=== PATIENT | female | born 1990 | race Caucasian/White ===

== ENCOUNTER 2016-06-26 04:51 | Emergency (ER) | payer OTHER ==
--- NOTE | 2016-06-26 08:29 | DIAGNOSTIC IMAGING REPORT ---
PROCEDURE: CT THORAX ABD PELVIS W/CONT INDICATION: CHEST/ABDO PAIN. ELEVATED LFTS, initial encounter TECHNIQUE: 100 ml of Isovue 300 injected intravenously and axial images were obtained of the entire thorax, abdomen, and pelvis with sagittal and coronal reformations. COMPARISON: Chest x-ray 06/26/[address] abdomen/pelvis fourth 21:11. FINDINGS: THORAX: Normal thoracic aorta without dissection or aneurysm. Normal mediastinum without hematoma. Normal heart size. Lungs are clear. No adenopathy or effusion. Mild degenerative changes of the spine. ABDOMEN: Cholecystectomy. Hepatic steatosis. A 2 cm hypoenhancing left renal upper pole lesion. Pancreas, spleen, adrenal glands, back, right kidney and abdominal aorta are normal. Mild descending colon diverticulosis. PELVIS: Appendix not visualized but no evidence of acute appendicitis. Mild sigmoid diverticulosis. Uterus, adnexa and bladder are unremarkable. No inflammatory changes or free fluid. No suspicious osseous lesions. IMPRESSION: 1. 2 cm hypoenhancing left renal upper pole mass. Recommend follow-up dedicated renal CT scan. 2. Hepatic steatosis 3. Cholecystectomy 4. Mild diverticulosis 5. Results discussed with Dr. Escobar All CT scans at this facility use dose modulation, iterative reconstruction, and/or weight-based dosing when appropriate to reduce radiation dose to as low as reasonably achievable.
--- NOTE | 2016-06-26 08:40 | DIAGNOSTIC IMAGING REPORT ---
PROCEDURE: XR CHEST 2 VIEW INDICATION: Chest pain, initial encounter TECHNIQUE: PA and lateral view. COMPARISON: Chest x-ray 02/17/2012 FINDINGS: Lungs are clear. Cardiovascular structures are normal. Bony thorax is unremarkable. No significant interval change. IMPRESSION: 1. Negative chest.
--- NOTE | 2016-06-26 08:57 | ED NURSING NOTES ---
Clinical Report - Nurses [facility] [address] [place] [address] 06/26/2016 4:52 Patient: ANITHA LINK TRIAGE Triage time 05:00 Jun 26 2016. Acuity: LEVEL 3. Chief Complaint: CHEST PAIN and DISCOMFORT. Alert. DOMO COMA SCORE: Domo Coma Scale: 15- eyes open spontaneously (4); best verbal response- oriented x 4 (5); best motor response- obeys commands (6). --05:12 Gonzalez Gonzales R.N. 05:02 06/26/16. BP: 149/98. HR: 114. RR: 20. O2 saturation: 98% on room air. Temp: 98.6 F. Pain level now: 8/10. Additional comments: Substernal CP. --05:12 Gonzalez Gonzales R.N. Weight: 122.4 kg stated. Height/Length: 61 inches Per Patient. BMI: 51. --05:05 Gonzalez Gonzales R.N. Medications Excedrin PM Oral, as needed. --05:04 Gonzalez Gonzales R.N. Allergies No Known Drug Allergy. --05:04 Gonzalez Gonzales R.N. Medication/allergy information source: the patient. --05:12 Gonzalez Gonzales R.N. History Arrived by private vehicle. Historian: patient. Accompanied by friend. ( Chest Pain associated with a TRAMMELL and back pain). This started yesterday. Onset. (about 17 hours ago). She has had difficulty breathing. Treatment BEAM DYER RECESSED VAT: (Excedrin x 3 ~ 3 hours ago). PAST MEDICAL HX: Immunizations: status is unknown. Last normal menstrual period was 3 weeks ago. SOCIAL HX: Former smoker, end date 2002. Never smoker. History of drug use: marijuana. No infectious disease exposure. ABUSE ASSESSMENT: No report of abuse. FALL RISK ASSESSMENT: Fall risk assessment completed. No fall risk identified. NUTRITIONAL RISK ASSESSMENT: The nutritional risk assessment revealed no deficiencies. FUNCTIONAL ASSESSMENT: Functional assessment: no impairments noted. LEARNING NEEDS ASSESSMENT: The learning needs assessment revealed no barriers. SKIN INTEGRITY ASSESSMENT: Skin integrity risk assessment completed. No skin integrity risk identified. --05:12 Gonzalez Gonzales R.N. PROBLEMS: Pharyngitis. Migraine Headache. Anxiety Reaction. --05:08 Gonzalez Gonzales R.N. ADDITIONAL SURGERIES: Cholecystectomy. . --05:08 Gonzalez Gonzales R.N. Interventions ID band on patient. To treatment room. --05:12 Gonzalez Gonzales R.N. PHYSICAL ASSESSMENT Ambulatory to room. GENERAL / NEURO / PSYCH: Alert. Oriented X 4. Appears in pain. HEENT: Mucous membranes are pink. RESPIRATORY: Respirations not labored. CVS: Cardiac rhythm: sinus tachycardia. Heart sounds within normal limits. Pulses within normal limits. Capillary refill less than 2 seconds. GI / : Abdomen soft and nontender. Diminished bowel sounds. EXTREMITIES: No lower extremity edema. SKIN: Skin is warm and dry. Normal skin turgor. Skin is non-tender. --05:15 Gonzalez Gonzales R.N. NURSING PROGRESS NOTES linux systems engineer, pulse oximeter, end tidal CO2 monitor and NIBP monitor placed on patient; shipyard helper- Lead II and V1; monitor alarms on. Patient gowned. Reassurance given to the patient. Patient identifiers checked. Call light placed in reach. Side rails up x 1. Bed placed in lowest position. Brakes of bed on. Patient placed in chair. Patient ready for evaluation- chart flagged and ED physician notified. --05:15 Gonzalez Gonzales R.N. EKG time: (0521 AM). EKG was ordered, performed by a tech and shown to the ED physician. --05:23 Lily Alvarenga 05:16 06/26/2016 Site #1 started via IV in the right wrist with an 22g angiocath, with aseptic technique and good blood return; one attempt. Blood drawn: rainbow set. Labeled in the presence of the patient and sent to the lab. Saline lock flushed with 10 mL saline. --05:26 Gonzalez Gonzales R.N. 05:31 06/26/2016 Maalox 30mL and Viscous Lidocaine 20mL * PO 50mL --05:31 Gonzalez Gonzales R.N. Patient transported to radiology by stretcher with tech. --05:35 Gonzalez Gonzales R.N. Patient returned from radiology by stretcher with tech. --05:36 Gonzalez Gonzales R.N. 06:10 06/26/16. Patient ID band checked for patient name, birthdate and medical record number: patient confirmed. Instructions provided to collect clean catch urine and patient verbalized understanding. Clean catch urine collected with return of yellow-colored clear urine; odor is normal; sample sent to lab for urinalysis, culture and drug screen. Specimen labeled in the presence of the patient. --06:22 Gonzalez Gonzales R.N. 06:19 06/26/2016 Toradol IVP 30 mg given over 2 minute(s) via site #1. Allergies verified and confirmed 5 rights. IV patency established. IV site checked: no pain, redness, or swelling. IV flushed thoroughly pre- and post-medication administration. IVP given by RN. --06:19 Gonzalez Gonzales R.N. 08:05 06/26/2016 Maalox 30mL and Viscous Lidocaine 20mL PO Response: no adverse reaction pain is improving. Symptoms have improved the patient feels better. --08:05 Derek Sterling R.N. 08:06 06/26/2016 Toradol IVP Response: no adverse reaction pain is improving. Symptoms have improved the patient feels better. --08:06 Derek Sterling R.N. 08:03. Patient walked back to ED from CT. --08:06 Derek Sterling R.N. 08:06 06/26/16. BP: 141/86. HR: 76. RR: 20. O2 saturation: 96% on room air. Pain level now: 07/16. --08:07 Derek Sterling R.N. late entry -08:10. linux systems engineer, pulse oximeter and NIBP monitor placed on patient; shipyard helper- Lead II and aVR; monitor alarms on. Head of bed elevated. Reassessment after medication administered. She is resting quietly. Overall patient status is improved- she states feels better. ( chest pain is improved to 3/10.). CVS: Cardiac rhythm: normal sinus rhythm. Call light placed in reach. Side rails up x 1. Bed placed in lowest position. Brakes of bed on. --08:37 Derek Sterling R.N. DISPOSITION / DISCHARGE 09:23 06/26/16. Departure time: 921. Condition at departure: improved and stable. No learning barriers present. Discharge instructions provided and reviewed with the patient. Reviewed medication(s). Patient verbalized understanding. Written instructions provided in [place]. The patient was discharged by the physician. She was discharged home and accompanied by roof bolter helper. She left the Emergency Department ambulatory and via private vehicle. Merchandise Supervisor driving. --09:25 Derek Sterling R.N. 09:22 06/26/16. BP: 142/95. HR: 80. RR: 20. O2 saturation: 96% on room air. Temp: 97.8 F (oral). Pain level now: 07/16. --09:25 Derek Sterling R.N. Locked/Released at 06/26/2016 10:17 by Derek Sterling R.N.
--- NOTE | 2016-06-26 08:57 | ED ORDER SUMMARY ---
..... Patient: ANITHA LINK OrderSheet [facility] VisitID: [id number] [address] [place] [address] 26y, F Registration Date/Time: 06/26/2016 ORDER SHEET Weight: 122.4 kg (stated) Allergies: No Known Drug Allergy GENERAL ORDERS: Service Line Layer (Continuous) (cp) (04:59 06/26/2016 Chandler Robertson) (5:26 Migeulito R.N.) Chest 2V Urgent (04:59 06/26/2016 Chandler Robetrson) (Ack 5:00 CHagerty ER Air Quality Chemist) (5:38 Yaniv) Urine Urgent (04:59 06/26/2016 Chandler Robertson) (Ack 5:00 CHagerty ER Air Quality Chemist) (6:21 Miguelito R.N.) Urine Drug Screen Urgent (04:06/26/2016 Chandler Robertson) (Ack 5:00 CHagerty ER Air Quality Chemist) (6:21 Miguelito R.N.) EKG - ER Stat (04:59 06/26/2016 Chandler Robertson) (5:21 CHagerty ER Air Quality Chemist) Pulse oximeter (04:59 06/26/2016 Chandler Robertson) (5:25 Miguelito R.N.) CBC w Diff Urgent (05:06/26/2016 Chandler Robertson) (Ack 5:17 CHagerty ER Air Quality Chemist) (5:26 Miguelito R.N.) CMP Urgent (05:06/26/2016 Chandler Robertson) (Ack 5:17 CHagerty ER Air Quality Chemist) (5:26 Miguelito R.N.) Troponin-I Urgent (05:06/26/2016 Chandler Robertson) (Ack 5:17 CHagerty ER Air Quality Chemist) (5:26 Miguelito R.N.) D-Dimer Urgent (05:06/26/2016 Chandler Robertson) (Ack 5:17 CHagerty ER Air Quality Chemist) (5:26 Miguelito R.N.) BNP Urgent (05:06/26/2016 Chandler Robertson) (Ack 5:17 CHagerty ER Air Quality Chemist) (5:26 Miguelito R.N.) Lipase Urgent (06:25 06/26/2016 Chandler Robertson) (6:26 Ramírez ER Air Quality Chemist) CT Thorax/Abd/Pelvis w Cont (No) (GFR > 60) Urgent (07:26 06/26/2016 Chandler Robertson) (Ack 7:32 TBergley) (8:05 Rasheeda R.N.) MEDICATION ORDERS: GI Cocktail WHITE PO 30 mL (NOW) (05:13 06/26/2016 Chandler Robertson) (5:31 Miguelito R.N.) IV FLUIDS: IV Saline Lock (05:16 06/26/2016 Chandler Robertson) (5:26 Miguelito R.N.) Toradol IV 30 mg (NOW) (06:03 06/26/2016 Chandler Robertson) (6:19 Miguelito R.NClaudy) ORDER SHEET NOTES: [Electronically signed by Derek Sterling R.N. (10:17 06/26/2016)] [Electronically signed by Michael Escobar Dr. (11:21 06/30/2016)] [Electronically locked/signed by Derek Sterling R.N. (10:17 06/26/2016)]
--- NOTE | 2016-06-26 08:57 | ED CLINICAL REPORT ---
Clinical Report - Physicians/Mid Levels [facility] [address] [place] [address] 06/26/2016 4:52 Patient: ANITHA LINK Arrived- By private vehicle. Historian- patient. HISTORY OF PRESENT ILLNESS Chief Complaint: CHEST PAIN. Is still present (staying the same). It was abrupt in onset and has been constant but is not gone now. Onset during rest. At its maximum, severity described as moderate. Modifying factors. Not worsened by anything. Not relieved by anything. It is described as located in the central chest area and radiating (back and left shoulder). The patient has had nausea. No vomiting, difficulty breathing or diaphoresis. Similar symptoms previously: None. Recent medical care: Not recently seen/assessed. REVIEW OF SYSTEMS All systems otherwise negative, except as recorded above. PAST HISTORY See nurses notes. Medications: Excedrin PM Oral, as needed. Allergies: No Known Drug Allergy. SOCIAL HISTORY No alcohol use or drug use. ADDITIONAL NOTES The nursing notes have been reviewed. PHYSICAL EXAM Vital Signs: 06/26/2016 05:02 BP: 149/98. HR: 114. RR: 20. O2 saturation: 98%. Temp: 98.6 F. Pain level now: 8/10. Blood pressure normal. Oxygen saturation normal. Appearance: Alert. Oriented X3. No acute distress. No marfanoid habitus. (nontoxic appearance). Eyes: Pupils equal, round and reactive to light. Eyes normal inspection. ENT: Ears normal. Nose normal. Pharynx normal. Neck: Normal inspection. Neck supple. No JVD. CVS: Normal heart rate and rhythm. Heart sounds normal. Pulses normal. No decreased pulses. Respiratory: No respiratory distress. Breath sounds normal. Chest nontender. No rales, rhonchi or wheezes. Abdomen: Soft and nontender. Bowel sounds normal. No mass. (no pulsatile masses). Back: Normal external inspection. Skin: Skin warm and dry. Normal skin color. No rash. Normal skin turgor. Extremities: Extremities exhibit normal ROM. No lower extremity edema. LABS, X-RAYS, AND EKG EKG: Narrow-complex tachycardia (101). Sinus tachycardia. Normal P waves. Normal ANUPAM. Normal QRS complex. Normal axis. Normal ST and T waves, QT and QTc. No ST elevation or depression. The study has been interpreted contemporaneously. The study has been independently viewed by me. The EKG appears to be a good tracing. Chest X-ray: No acute disease. Normal lung markings present. Normal heart size. Mediastinum normal. Great vessels normal. No infiltrate. Views: PA and lateral. Technique: good. The X-rays were independently viewed by me and interpreted contemporaneously by me. Laboratory Tests: Urine: (MAURY: 06/26/2016 06:10) ( [facility] [place] 06:45) Final results Test Result Flag Units (Reference) URINE NEGATIVE CBC w Diff: (MAURY: 06/26/2016 05:26) ( [facility] 06/26/2016 05:32) Final results Test Result Flag Units (Reference) WHITE BLOOD COUNT 7.8 K/uL (4.5-11.5) RED BLOOD COUNT 5.00 M/uL (4.00-5.20) HEMOGLOBIN 14.5 gm/dL (12.0-16.0) HEMATOCRIT 43.2 % (36.0-46.0) MEAN CELL VOLUME 86 fL (80-100) MEAN CORPUSCULAR HGB 29 pg (26-34) MEAN CORPUSCULAR HGB CONC 34 g/dL (31-37) RED CELL DISTRIBUTION WIDTH 13.1 % (11.6-14.8) PLATELET COUNT 255 K/uL (150-400) NEUTROPHIL % 57.2 % (50-75) LYMPH % 31.6 % (25-40) MONO % 9.2 % (3-14) EOSINOPHIL % 1.5 % (0-4) BASOPHIL % 0.5 % (0-2) [id number]: (MAURY: 06/26/2016 05:26) ( [facility] 06/26/2016 05:49) Final results Test Result Flag Units (Reference) D-DIMER QUANTITATIVE < 0.27 L ug/mLFEU (0.27-0.52) The primary value of this quantitative assay relates toits negative predictive value (i.e. exclusion) of pulmonaryembolism/deep vein thrombosis/DIC.Elevated levels of d-dimer may also occur with:, age, cancer, inflammation, liver disease,post-op, infection, hematoma, coronary disease, peripheralarteriopathy, bleeding disorders and thrombolytic treatment.Results should be correlated with other clinical andradiological data.Testing Methodology: Latex Immunoassay Lipase: (MAURY: 06/26/2016 04:30) ( [facility] 06/26/2016 06:48) Final results Test Result Flag Units (Reference) LIPASE 187 U/L (73-393) BNP: (MAURY: 06/26/2016 05:26) ( [facility] 06/26/2016 05:58) Final results Test Result Flag Units (Reference) B-TYPE NATRIURETIC PEPTIDE < 5 L pg/ml (5-100) CMP: (MAURY: 06/26/2016 05:26) ( [facility] [place] 05:55) Final results Test Result Flag Units (Reference) GLUCOSE 111 H mg/dL (70-110) BUN 10 mg/dL (7-18) CREATININE 0.7 mg/dL (0.6-1.3) Estimated GFR >60 mL/min Estimated GFR- >60 mL/min Note: Persistent reduction over 3 months in eGFR<60 mL/min/1.73 m2 defines CKD. Patients with eGFR values>=60 mL/min/1.73 m2 may also have CKD if evidence ofpersistent proteinuria. Additional information may be foundat www.kidney.org. SODIUM 140 mmol/L (136-145) POTASSIUM 3.5 mmol/L (3.5-5.1) CHLORIDE 104 mmol/L (98-107) CARBON DIOXIDE 24 mmol/L (21-32) CALCIUM 9.2 mg/dL (8.5-10.1) TOTAL PROTEIN 8.2 g/dL (6.4-8.2) ALBUMIN 3.9 g/dL (3.3-5.0) BILIRUBIN, TOTAL 0.3 mg/dL (0.0-1.0) ALKALINE PHOSPHATASE 65 U/L (46-116) AST (SGOT) 40 H U/L (15-37) ALT (SGPT) 106 H U/L (12-78) TROPONIN I <0.05 L ng/mL (0.00-1.5) TROPONIN REFERENCE RANGE:<0.1 NEGATIVE0.1-1.5 INDETERMINANT>1.5 POSITIVE Urine Drug Screen: (MAURY: 06/26/2016 06:10) ( MsgRcvd 06/26/2016 07:09) Final results Test Result Flag Units (Reference) AMPHETAMINE/METHAMPHETAMINE NEGATIVE (NEGATIVE) BARBITURATE NEGATIVE (NEGATIVE) BENZODIAZEPINE NEGATIVE (NEGATIVE) CANNABINOID POSITIVE H (NEGATIVE) COCAINE NEGATIVE (NEGATIVE) ECSTASY NEGATIVE (NEGATIVE) METHADONE NEGATIVE (NEGATIVE) OPIATE NEGATIVE (NEGATIVE) The urine drug screen is a qualitative screening test fordrug overdose and abuse. All screen results should beconsidered as presumptive.Drugs screened for are as follows:BenzodiazepinesCocaineAmphetamines/MetamphetaminesTHC (Tetrahydrocannabinol)OpiatesBarbituratesEcstasyMethadonePositive results are unconfirmed. For confirmation, notifythe lab for the specimen to be sent to the reference lab.All confirmations must be performed by a differentmethodology.The ingestion of natural herbal and plant productscontaining Ephedra/Ephedra metabolites can produce in urineone or more substances capable of cross reacting withamphetamine/methamphetamine immunoassays. These testsprovide a preliminary result only. A more specificalternative chemical method must be used to obtain aconfirmed analytical result. . PROGRESS AND PROCEDURES Course of Care: the patient is a pleasant 26-year-old female w Presenting for evaluation of chest pain. patient reports radiation of her pain to the back and shoulder. At this time, acute myocardial infarction, pulmonary embolism, and gastroesophageal reflux are in the differential diagnosis. Patient is agreeable to treatment plan. Laboratory studies, EKG, and urinalysis will be obtained. Patient appears nontoxic. We'll reassess patient once medications Have been provided. patient reports improvement in symptoms with the medications provided. EKG does not show any acute abnormalities for ischemia. Chest x-ray is noted to be clear. Laboratory studies are unremarkable. Because of the pain symptom distribution, a lipase was added onto the patient's workup. Patient is nontoxic and in no acute distress. The rest of the patient's laboratory studies and noted to be unremarkable. Patient reports significant improvement with her symptoms. Workup here in the emergency department D-dimer is also noted to be negative. Do not feel patient has pulmonary embolism or dissection because of the normal d-dimer. Discussed with patient workup, diagnosis, home care, follow-up, and return precautions. All questions answered. The patient expressed understanding of these instructions and was agreeable to them. Do not feel patient is be admitted to the hospital or require further emergency department/workup/evaluation. CLINICAL IMPRESSION 06/26/2016 08:06 BP: 141/86. HR: 76. RR: 20. O2 saturation: 96%. Pain level now: 3/10. Acute generalized abdominal pain. (acute). Hypertensive. Oxygen saturation normal. Atypical chest pain (acute). acute hepatic steatosis acute left renal mass, incidental finding. INSTRUCTIONS (Must get repeat CT scan of the abdomen to check on the size of the kidney mass in 6 - 12 months.). Your Current Medications: STOP TAKING THE FOLLOWING MEDICATIONS: Excedrin PM Oral : prn. Prescription Medications: Motrin 600 mg tablets: take 1 tablet orally every 6 hours as needed for pain, stiffness or swelling. Dispense thirty (30). No refill. Substitution is permissible. Zofran ODT 4 mg: take 1 orally every 8 hours as needed for nausea and vomiting. Dispense ten (10). No refill. Substitution is permissible. Follow-up: Return to the emergency department as needed. Follow up with your doctor in three. Reason for referral: recheck today's concerns. Summary of care provided to patient via paper. Screening today revealed the patient's blood pressure to be in the hypertensive range. The patient should follow up with a primary care provider for blood pressure management. Understanding of the discharge instructions verbalized by patient. (Electronically signed by Michael Escobar Dr. 06/30/2016 11:21)
--- NOTE | 2016-06-26 08:57 | ED NURSING NOTES ---
Clinical Report - Nurses [facility] [address] [place] [address] 06/26/2016 4:52 Patient: ANITHA LINK TRIAGE Triage time 05:00 Jun 26 2016. Acuity: LEVEL 3. Chief Complaint: CHEST PAIN and DISCOMFORT. Alert. DOMO COMA SCORE: Domo Coma Scale: 15- eyes open spontaneously (4); best verbal response- oriented x 4 (5); best motor response- obeys commands (6). --05:12 Gonzalez Gonzales R.N. 05:02 06/26/16. BP: 149/98. HR: 114. RR: 20. O2 saturation: 98% on room air. Temp: 98.6 F. Pain level now: 8/10. Additional comments: Substernal CP. --05:12 Gonzalez Gonzales R.N. Weight: 122.4 kg stated. Height/Length: 61 inches Per Patient. BMI: 51. --05:05 Gonzalez Gonzales R.N. Medications Excedrin PM Oral, as needed. --05:04 Gonzalez Gonzales R.N. Allergies No Known Drug Allergy. --05:04 Gonzalez Gonzales R.N. Medication/allergy information source: the patient. --05:12 Gonzalez Gonzales R.N. History Arrived by private vehicle. Historian: patient. Accompanied by friend. ( Chest Pain associated with a TRAMMELL and back pain). This started yesterday. Onset. (about 17 hours ago). She has had difficulty breathing. Treatment GOLD BLOWER: (Excedrin x 3 ~ 3 hours ago). PAST MEDICAL HX: Immunizations: status is unknown. Last normal menstrual period was 3 weeks ago. SOCIAL HX: Former smoker, end date 2002. Never smoker. History of drug use: marijuana. No infectious disease exposure. ABUSE ASSESSMENT: No report of abuse. FALL RISK ASSESSMENT: Fall risk assessment completed. No fall risk identified. NUTRITIONAL RISK ASSESSMENT: The nutritional risk assessment revealed no deficiencies. FUNCTIONAL ASSESSMENT: Functional assessment: no impairments noted. LEARNING NEEDS ASSESSMENT: The learning needs assessment revealed no barriers. SKIN INTEGRITY ASSESSMENT: Skin integrity risk assessment completed. No skin integrity risk identified. --05:12 Gonzalez Gonzales R.N. PROBLEMS: Pharyngitis. Migraine Headache. Anxiety Reaction. --05:08 Gonzalez Gonzales R.N. ADDITIONAL SURGERIES: Cholecystectomy. . --05:08 Gonzalez Gonzales R.N. Interventions ID band on patient. To treatment room. --05:12 Gonzalez Gonzales R.N. PHYSICAL ASSESSMENT Ambulatory to room. GENERAL / NEURO / PSYCH: Alert. Oriented X 4. Appears in pain. HEENT: Mucous membranes are pink. RESPIRATORY: Respirations not labored. CVS: Cardiac rhythm: sinus tachycardia. Heart sounds within normal limits. Pulses within normal limits. Capillary refill less than 2 seconds. GI / : Abdomen soft and nontender. Diminished bowel sounds. EXTREMITIES: No lower extremity edema. SKIN: Skin is warm and dry. Normal skin turgor. Skin is non-tender. --05:15 Gonzalez Gonzales R.N. NURSING PROGRESS NOTES hall monitor, pulse oximeter, end tidal CO2 monitor and NIBP monitor placed on patient; cardiac exercise physiologist- Lead II and V1; monitor alarms on. Patient gowned. Reassurance given to the patient. Patient identifiers checked. Call light placed in reach. Side rails up x 1. Bed placed in lowest position. Brakes of bed on. Patient placed in chair. Patient ready for evaluation- chart flagged and ED physician notified. --05:15 Gonzalez Gonzales R.N. EKG time: (0521 AM). EKG was ordered, performed by a tech and shown to the ED physician. --05:23 Lily Alvarenga 05:16 06/26/2016 Site #1 started via IV in the right wrist with an 22g angiocath, with aseptic technique and good blood return; one attempt. Blood drawn: rainbow set. Labeled in the presence of the patient and sent to the lab. Saline lock flushed with 10 mL saline. --05:26 Gonzalez Gonzales R.N. 05:31 06/26/2016 Maalox 30mL and Viscous Lidocaine 20mL * PO 50mL --05:31 Gonzalez Gonzales R.N. Patient transported to radiology by stretcher with tech. --05:35 Gonzalez Gonzales R.N. Patient returned from radiology by stretcher with tech. --05:36 Gonzalez Gonzales R.N. 06:10 06/26/16. Patient ID band checked for patient name, birthdate and medical record number: patient confirmed. Instructions provided to collect clean catch urine and patient verbalized understanding. Clean catch urine collected with return of yellow-colored clear urine; odor is normal; sample sent to lab for urinalysis, culture and drug screen. Specimen labeled in the presence of the patient. --06:22 Gonzalez Gonzales R.N. 06:19 06/26/2016 Toradol IVP 30 mg given over 2 minute(s) via site #1. Allergies verified and confirmed 5 rights. IV patency established. IV site checked: no pain, redness, or swelling. IV flushed thoroughly pre- and post-medication administration. IVP given by RN. --06:19 Gonzalez Gonzales R.N. 08:05 06/26/2016 Maalox 30mL and Viscous Lidocaine 20mL PO Response: no adverse reaction pain is improving. Symptoms have improved the patient feels better. --08:05 Derek Sterling R.N. 08:06 06/26/2016 Toradol IVP Response: no adverse reaction pain is improving. Symptoms have improved the patient feels better. --08:06 Derek Sterling R.N. 08:03. Patient walked back to ED from CT. --08:06 Derek Sterling R.N. 08:06 06/26/16. BP: 141/86. HR: 76. RR: 20. O2 saturation: 96% on room air. Pain level now: 07/16. --08:07 Derek Sterling R.N. late entry -08:10. hall monitor, pulse oximeter and NIBP monitor placed on patient; cardiac exercise physiologist- Lead II and aVR; monitor alarms on. Head of bed elevated. Reassessment after medication administered. She is resting quietly. Overall patient status is improved- she states feels better. ( chest pain is improved to 3/10.). CVS: Cardiac rhythm: normal sinus rhythm. Call light placed in reach. Side rails up x 1. Bed placed in lowest position. Brakes of bed on. --08:37 Derek Sterling R.N. DISPOSITION / DISCHARGE 09:23 06/26/16. Departure time: 921. Condition at departure: improved and stable. No learning barriers present. Discharge instructions provided and reviewed with the patient. Reviewed medication(s). Patient verbalized understanding. Written instructions provided in Georgian. The patient was discharged by the physician. She was discharged home and accompanied by maintenance mechanic technician. She left the Emergency Department ambulatory and via private vehicle. Bridge Engineer driving. --09:25 Derek Sterling R.N. 09:22 06/26/16. BP: 142/95. HR: 80. RR: 20. O2 saturation: 96% on room air. Temp: 97.8 F (oral). Pain level now: 07/16. --09:25 Derek Sterling R.N. Locked/Released at 06/26/2016 10:17 by Derek Sterling R.N.
--- NOTE | 2016-06-26 08:57 | ED ORDER SUMMARY ---
..... Patient: ANITHA LINK OrderSheet [facility] VisitID: [id number] [address] [place] [address] 26y, F Registration Date/Time: 06/26/2016 ORDER SHEET Weight: 122.4 kg (stated) Allergies: No Known Drug Allergy GENERAL ORDERS: Search And Rescue Officer (Continuous) (cp) (04:59 06/26/2016 Chandler Robertson) (5:26 Miguelito R.N.) Chest 2V Urgent (04:59 06/26/2016 Chandler Robertson) (Ack 5:00 CHagerty ER Machine Finisher) (5:38 Yaniv) Urine Urgent (04:59 06/26/2016 Chandler Robertson) (Ack 5:00 CHagerty ER Machine Finisher) (6:21 Miguelito R.N.) Urine Drug Screen Urgent (04:06/26/2016 Chandler Robertson) (Ack 5:00 CHagerty ER Machine Finisher) (6:21 Miguelito R.N.) EKG - ER Stat (04:59 06/26/2016 Chandler Robertson) (5:21 CHagerty ER Machine Finisher) Pulse oximeter (04:59 06/26/2016 Chandler Robertson) (5:25 Miguelito R.N.) CBC w Diff Urgent (05:06/26/2016 Chandler Robertson) (Ack 5:17 CHagerty ER Machine Finisher) (5:26 Miguelito R.N.) CMP Urgent (05:06/26/2016 Chandler Robertson) (Ack 5:17 CHagerty ER Machine Finisher) (5:26 Miguelito R.N.) Troponin-I Urgent (05:06/26/2016 Chandler Robertson) (Ack 5:17 CHagerty ER Machine Finisher) (5:26 Miguelito R.N.) D-Dimer Urgent (05:06/26/2016 Chandler Robertson) (Ack 5:17 CHagerty ER Machine Finisher) (5:26 Miguelito R.N.) BNP Urgent (05:06/26/2016 Chandler Robertson) (Ack 5:17 CHagerty ER Machine Finisher) (5:26 Miguelito R.N.) Lipase Urgent (06:25 06/26/2016 Chandler Robertson) (6:26 Ramírez ER Machine Finisher) CT Thorax/Abd/Pelvis w Cont (No) (GFR > 60) Urgent (07:26 06/26/2016 Chandler Robertson) (Ack 7:32 TBergley) (8:05 Rasheeda R.N.) MEDICATION ORDERS: GI Cocktail WHITE PO 30 mL (NOW) (05:13 06/26/2016 Chandler Robertson) (5:31 Miguelito R.N.) IV FLUIDS: IV Saline Lock (05:16 06/26/2016 Chandler Robertson) (5:26 Miguelito R.N.) Toradol IV 30 mg (NOW) (06:03 06/26/2016 Chandler Robertson) (6:19 Miguelito R.NClaudy) ORDER SHEET NOTES: [Electronically signed by Derek Sterling R.N. (10:17 06/26/2016)] [Electronically signed by Michael Escobar Dr. (11:21 06/30/2016)] [Electronically locked/signed by Derek Sterling R.N. (10:17 06/26/2016)]
--- NOTE | 2016-06-26 08:57 | ED CLINICAL REPORT ---
Clinical Report - Physicians/Mid Levels [facility] [address] [place] [address] 06/26/2016 4:52 Patient: ANITHA LINK Arrived- By private vehicle. Historian- patient. HISTORY OF PRESENT ILLNESS Chief Complaint: CHEST PAIN. Is still present (staying the same). It was abrupt in onset and has been constant but is not gone now. Onset during rest. At its maximum, severity described as moderate. Modifying factors. Not worsened by anything. Not relieved by anything. It is described as located in the central chest area and radiating (back and left shoulder). The patient has had nausea. No vomiting, difficulty breathing or diaphoresis. Similar symptoms previously: None. Recent medical care: Not recently seen/assessed. REVIEW OF SYSTEMS All systems otherwise negative, except as recorded above. PAST HISTORY See nurses notes. Medications: Excedrin PM Oral, as needed. Allergies: No Known Drug Allergy. SOCIAL HISTORY No alcohol use or drug use. ADDITIONAL NOTES The nursing notes have been reviewed. PHYSICAL EXAM Vital Signs: 06/26/2016 05:02 BP: 149/98. HR: 114. RR: 20. O2 saturation: 98%. Temp: 98.6 F. Pain level now: 8/10. Blood pressure normal. Oxygen saturation normal. Appearance: Alert. Oriented X3. No acute distress. No marfanoid habitus. (nontoxic appearance). Eyes: Pupils equal, round and reactive to light. Eyes normal inspection. ENT: Ears normal. Nose normal. Pharynx normal. Neck: Normal inspection. Neck supple. No JVD. CVS: Normal heart rate and rhythm. Heart sounds normal. Pulses normal. No decreased pulses. Respiratory: No respiratory distress. Breath sounds normal. Chest nontender. No rales, rhonchi or wheezes. Abdomen: Soft and nontender. Bowel sounds normal. No mass. (no pulsatile masses). Back: Normal external inspection. Skin: Skin warm and dry. Normal skin color. No rash. Normal skin turgor. Extremities: Extremities exhibit normal ROM. No lower extremity edema. LABS, X-RAYS, AND EKG EKG: Narrow-complex tachycardia (101). Sinus tachycardia. Normal P waves. Normal ANUPAM. Normal QRS complex. Normal axis. Normal ST and T waves, QT and QTc. No ST elevation or depression. The study has been interpreted contemporaneously. The study has been independently viewed by me. The EKG appears to be a good tracing. Chest X-ray: No acute disease. Normal lung markings present. Normal heart size. Mediastinum normal. Great vessels normal. No infiltrate. Views: PA and lateral. Technique: good. The X-rays were independently viewed by me and interpreted contemporaneously by me. Laboratory Tests: Urine: (MAURY: 06/26/2016 06:10) ( [facility] [place] 06:45) Final results Test Result Flag Units (Reference) URINE NEGATIVE CBC w Diff: (MAURY: 06/26/2016 05:26) ( [facility] 06/26/2016 05:32) Final results Test Result Flag Units (Reference) WHITE BLOOD COUNT 7.8 K/uL (4.5-11.5) RED BLOOD COUNT 5.00 M/uL (4.00-5.20) HEMOGLOBIN 14.5 gm/dL (12.0-16.0) HEMATOCRIT 43.2 % (36.0-46.0) MEAN CELL VOLUME 86 fL (80-100) MEAN CORPUSCULAR HGB 29 pg (26-34) MEAN CORPUSCULAR HGB CONC 34 g/dL (31-37) RED CELL DISTRIBUTION WIDTH 13.1 % (11.6-14.8) PLATELET COUNT 255 K/uL (150-400) NEUTROPHIL % 57.2 % (50-75) LYMPH % 31.6 % (25-40) MONO % 9.2 % (3-14) EOSINOPHIL % 1.5 % (0-4) BASOPHIL % 0.5 % (0-2) [id number]: (MAURY: 06/26/2016 05:26) ( [facility] 06/26/2016 05:49) Final results Test Result Flag Units (Reference) D-DIMER QUANTITATIVE < 0.27 L ug/mLFEU (0.27-0.52) The primary value of this quantitative assay relates toits negative predictive value (i.e. exclusion) of pulmonaryembolism/deep vein thrombosis/DIC.Elevated levels of d-dimer may also occur with:, age, cancer, inflammation, liver disease,post-op, infection, hematoma, coronary disease, peripheralarteriopathy, bleeding disorders and thrombolytic treatment.Results should be correlated with other clinical andradiological data.Testing Methodology: Latex Immunoassay Lipase: (MAURY: 06/26/2016 04:30) ( [facility] 06/26/2016 06:48) Final results Test Result Flag Units (Reference) LIPASE 187 U/L (73-393) BNP: (MAURY: 06/26/2016 05:26) ( [facility] 06/26/2016 05:58) Final results Test Result Flag Units (Reference) B-TYPE NATRIURETIC PEPTIDE < 5 L pg/ml (5-100) CMP: (MAURY: 06/26/2016 05:26) ( [facility] 05:55) Final results Test Result Flag Units (Reference) GLUCOSE 111 H mg/dL (70-110) BUN 10 mg/dL (7-18) CREATININE 0.7 mg/dL (0.6-1.3) Estimated GFR >60 mL/min Estimated GFR- >60 mL/min Note: Persistent reduction over 3 months in eGFR<60 mL/min/1.73 m2 defines CKD. Patients with eGFR values>=60 mL/min/1.73 m2 may also have CKD if evidence ofpersistent proteinuria. Additional information may be foundat www.kidney.org. SODIUM 140 mmol/L (136-145) POTASSIUM 3.5 mmol/L (3.5-5.1) CHLORIDE 104 mmol/L (98-107) CARBON DIOXIDE 24 mmol/L (21-32) CALCIUM 9.2 mg/dL (8.5-10.1) TOTAL PROTEIN 8.2 g/dL (6.4-8.2) ALBUMIN 3.9 g/dL (3.3-5.0) BILIRUBIN, TOTAL 0.3 mg/dL (0.0-1.0) ALKALINE PHOSPHATASE 65 U/L (46-116) AST (SGOT) 40 H U/L (15-37) ALT (SGPT) 106 H U/L (12-78) TROPONIN I <0.05 L ng/mL (0.00-1.5) TROPONIN REFERENCE RANGE:<0.1 NEGATIVE0.1-1.5 INDETERMINANT>1.5 POSITIVE Urine Drug Screen: (MAURY: 06/26/2016 06:10) ( Msg[facility]cvd 06/26/2016 07:09) Final results Test Result Flag Units (Reference) AMPHETAMINE/METHAMPHETAMINE NEGATIVE (NEGATIVE) BARBITURATE NEGATIVE (NEGATIVE) BENZODIAZEPINE NEGATIVE (NEGATIVE) CANNABINOID POSITIVE H (NEGATIVE) COCAINE NEGATIVE (NEGATIVE) ECSTASY NEGATIVE (NEGATIVE) METHADONE NEGATIVE (NEGATIVE) OPIATE NEGATIVE (NEGATIVE) The urine drug screen is a qualitative screening test fordrug overdose and abuse. All screen results should beconsidered as presumptive.Drugs screened for are as follows:BenzodiazepinesCocaineAmphetamines/MetamphetaminesTHC (Tetrahydrocannabinol)OpiatesBarbituratesEcstasyMethadonePositive results are unconfirmed. For confirmation, notifythe lab for the specimen to be sent to the reference lab.All confirmations must be performed by a differentmethodology.The ingestion of natural herbal and plant productscontaining Ephedra/Ephedra metabolites can produce in urineone or more substances capable of cross reacting withamphetamine/methamphetamine immunoassays. These testsprovide a preliminary result only. A more specificalternative chemical method must be used to obtain aconfirmed analytical result. . PROGRESS AND PROCEDURES Course of Care: the patient is a pleasant 26-year-old female w Presenting for evaluation of chest pain. patient reports radiation of her pain to the back and shoulder. At this time, acute myocardial infarction, pulmonary embolism, and gastroesophageal reflux are in the differential diagnosis. Patient is agreeable to treatment plan. Laboratory studies, EKG, and urinalysis will be obtained. Patient appears nontoxic. We'll reassess patient once medications Have been provided. patient reports improvement in symptoms with the medications provided. EKG does not show any acute abnormalities for ischemia. Chest x-ray is noted to be clear. Laboratory studies are unremarkable. Because of the pain symptom distribution, a lipase was added onto the patient's workup. Patient is nontoxic and in no acute distress. The rest of the patient's laboratory studies and noted to be unremarkable. Patient reports significant improvement with her symptoms. Workup here in the emergency department D-dimer is also noted to be negative. Do not feel patient has pulmonary embolism or dissection because of the normal d-dimer. Discussed with patient workup, diagnosis, home care, follow-up, and return precautions. All questions answered. The patient expressed understanding of these instructions and was agreeable to them. Do not feel patient is be admitted to the hospital or require further emergency department/workup/evaluation. CLINICAL IMPRESSION 06/26/2016 08:06 BP: 141/86. HR: 76. RR: 20. O2 saturation: 96%. Pain level now: 3/10. Acute generalized abdominal pain. (acute). Hypertensive. Oxygen saturation normal. Atypical chest pain (acute). acute hepatic steatosis acute left renal mass, incidental finding. INSTRUCTIONS (Must get repeat CT scan of the abdomen to check on the size of the kidney mass in 6 - 12 months.). Your Current Medications: STOP TAKING THE FOLLOWING MEDICATIONS: Excedrin PM Oral : prn. Prescription Medications: Motrin 600 mg tablets: take 1 tablet orally every 6 hours as needed for pain, stiffness or swelling. Dispense thirty (30). No refill. Substitution is permissible. Zofran ODT 4 mg: take 1 orally every 8 hours as needed for nausea and vomiting. Dispense ten (10). No refill. Substitution is permissible. Follow-up: Return to the emergency department as needed. Follow up with your doctor in three. Reason for referral: recheck today's concerns. Summary of care provided to patient via paper. Screening today revealed the patient's blood pressure to be in the hypertensive range. The patient should follow up with a primary care provider for blood pressure management. Understanding of the discharge instructions verbalized by patient. (Electronically signed by Michael Escobar Dr. 06/30/2016 11:21)
--- NOTE | 2016-06-30 11:22 | ED MED RECONCILIATION SUMMARY ---
Patient: ANITHA LINK Medication Reconciliation Report [facility] VisitID: [id number] [address] [place] [address] 26y, F Registration Date/Time: 06/26/2016 Weight: 122.4 kg Height/Length: 61 in. BMI: 51.0 ALLERGIES: No Known Drug Allergy The patient's Home Medications are listed below: STOP TAKING THE FOLLOWING MEDICATIONS: Excedrin PM Oral The source(s) of the original Home Medication information: patient The following Medications were given to the patient in the Emergency Department: Maalox 30mL and Viscous Lidocaine 20mL PO 50mL, administered: 06/26/2016 5:31:00 AM Toradol [IVP] IVP 30 mg, administered: 06/26/2016 6:19:00 AM The following Medications were prescribed to the patient: Motrin 600 mg tablets: take 1 tablet orally every 6 hours as needed for pain, stiffness or swelling. Dispense thirty (30). No refill. Substitution is permissible. -- Michael Escobar Dr. Zofran ODT 4 mg: take 1 orally every 8 hours as needed for nausea and vomiting. Dispense ten (10). No refill. Substitution is permissible. -- Michael Escobar Dr.
--- NOTE | 2016-06-30 11:22 | ED DISCHARGE INSTRUCTIONS ---
Patient: ANITHA LINK General Instructions [facility] VisitID: [id number] [address] [place] [address] 26y, F Registration Date/Time: 06/26/2016 06/26/2016 08:06 BP: 141/86. HR: 76. RR: 20. O2 saturation: 96%. Pain level now: 3/10. Acute generalized abdominal pain. (acute). Hypertensive. Oxygen saturation normal. Atypical chest pain (acute). acute hepatic steatosis acute left renal mass, incidental finding. INSTRUCTIONS (Must get repeat CT scan of the abdomen to check on the size of the kidney mass in 6 - 12 months.). Your Current Medications: STOP TAKING THE FOLLOWING MEDICATIONS: Excedrin PM Oral : prn. Prescription Medications: Motrin 600 mg tablets: take 1 tablet orally every 6 hours as needed for pain, stiffness or swelling. Dispense thirty (30). No refill. Substitution is permissible. Zofran ODT 4 mg: take 1 orally every 8 hours as needed for nausea and vomiting. Dispense ten (10). No refill. Substitution is permissible. Follow-up: Return to the emergency department as needed. Follow up with your doctor in three. Reason for referral: recheck today's concerns. Summary of care provided to patient via paper. Screening today revealed the patient's blood pressure to be in the hypertensive range. The patient should follow up with a primary care provider for blood pressure management. Understanding of the discharge instructions verbalized by patient. ADDITIONAL INFORMATION Chest Pain, Uncertain Cause Chest pain can happen for a number of reasons. Sometimes the cause can not be determined. If yourcondition does not seem serious, and your pain does not appear to be coming from your heart, your doctor may recommend watching it closely. Sometimes the signs of a serious problem take more time to appear. Therefore, watch for the warning signs listed below. Home care After your visit, follow these recommendations: Rest today and avoid strenuous activity. Take any prescribed medicine as directed. Follow-up care Follow up with your doctor or this facility as instructed or if you do not start to feel better within 24 hours. Call 911 Get immediate medical attention if any of the following occur: A change in the type of pain: if it feels different, becomes more severe, lasts longer, or begins to spread into your shoulder, arm, neck, jaw or back Shortness of breath or increased pain with breathing Weakness, dizziness, or fainting Rapid heart beat Get prompt medical attention Call your doctor right away if any of the following occur: Cough with dark colored sputum (phlegm) or blood Fever of 100.4F(38C) or higher, or as directed by your health care provider Swelling, pain or redness in one leg Abdominal Pain, Unknown Cause (Female) The exact cause of your abdominal (stomach) pain is not certain. This does not mean that this is something to worry about, or the right tests were not done. Everyone likes to know the exact cause of the problem, but sometimes with abdominal pain, there is no clear-cut cause, and this could be a good thing. The good news is that your symptoms can be treated, and you will feel better. Your condition does not seem serious now; however, sometimes the signs of a serious problem may take more time to appear. For this reason,it is important for you to watch for any new symptoms, problems,or worsening of your condition. Over the next few days, the abdominal pain may come and go, or be continuous. Other common symptoms can include nausea and vomiting. Sometimes it can be difficult to tell if you feel nauseous, you may just feel bad and not associate that feeling with nausea. Constipation, diarrhea, and a fever may go along with the pain. The pain may continue even if treated correctly over the following days. Depending on how things go, sometimes the cause can become clear and may require further or different treatment. Additional evaluations, medications, or tests may be needed. Home care Your health care provider may prescribe medications for pain, symptoms, or an infection. Follow the health care provider's instructions for taking these medications. General care Rest until your next exam. No strenuous activities. Try to find positions that ease discomfort. A small pillow placed on the abdomen may help relieve pain. Something warm on your abdomen (such as a heating pad) may help, but be careful not to burn yourself. Diet Do not force yourself to eat, especially if having cramps, vomiting, or diarrhea. Water is important so you do not get dehydrated. Soup may also be good. Sports drinks may also help, especially if they are not too acidic. Make sure you don't drink sugary drinks as this can make things worse. Take liquids in small amounts. Do not guzzle them. Caffeine sometimes makes the pain and cramping worse. Avoid dairy products if you have vomiting or diarrhea. Don't eat large amounts at a time. Wait a few minutes between bites. Eat a diet low in fiber (called a low-residue diet). Foods allowed include refined breads, white rice, fruit and vegetable juices without pulp, tender meats. These foods will pass more easily through the intestine. Avoid whole-grain foods, whole fruits and vegetables, meats, seeds and nuts, fried or fatty foods, dairy, alcohol and spicy foods until your symptoms go away. Follow-up care Follow up with your health care provider as instructed, or if your pain does not begin to improve in the next 24 hours. When to seek medical care Seek prompt medical care if any of the following occur: Pain gets worse or moves to the right lower abdomen New or worsening vomiting or diarrhea Swelling of the abdomen Unable to pass stool for more than three days Fever of 100.4F (38C) or higher, or as directed by your healthcare provider. Blood in vomit or bowel movements (dark red or black color) Jaundice (yellow color of eyes and skin) Weakness, dizziness Chest, arm, back, neck or jaw pain Unexpected vaginal bleeding or missed period Call 911 Call emergency services if any of the following occur: Trouble breathing Confusion Fainting or loss of consciousness Rapid heart rate Seizure Ibuprofen Oral tablet What is this medicine? IBUPROFEN (eye BYOO proe fen) is a non-steroidal anti-inflammatory drug (NSAID). It is used for dental pain, fever, headaches or migraines, osteoarthritis, rheumatoid arthritis, or painful monthly periods. It can also relieve minor aches and pains caused by a cold, flu, or sore throat. How should I use this medicine? Take this medicine by mouth with a glass of water. Follow the directions on the prescription label. Take this medicine with food if your stomach gets upset. Try to not lie down for at least 10 minutes after you take the medicine. Take your medicine at regular intervals. Do not take your medicine more often than directed. A special MedGuide will be given to you by the pharmacist with each prescription and refill. Be sure to read this information carefully each time. Talk to your storage engineer regarding the use of this medicine in children. Special care may be needed. What side effects may I notice from receiving this medicine? Side effects that you should report to your doctor or health intensive care unit registered nurse as soon as possible: allergic reactions like skin rash, itching or hives, swelling of the face, lips, or tongue black or bloody stools, blood in the urine or in vomit breathing problems changes in vision chest pain general ill feeling or flu-like symptoms nausea or vomiting redness, blistering, peeling or loosening of the skin, including inside the mouth slurred speech or weakness on one side of the body stomach pain unexplained weight gain or swelling unusually weak or tired yellowing of eyes or skin Side effects that usually do not require medical attention (report to your doctor or health intensive care unit registered nurse if they continue or are bothersome): constipation or diarrhea dizziness gas or heartburn stomach upset What may interact with this medicine? Do not take this medicine with any of the following medications: cidofovir ketorolac methotrexate pemetrexed This medicine may also interact with the following medications: alcohol aspirin diuretics lithium other drugs for inflammation like prednisone warfarin What if I miss a dose? If you miss a dose, take it as soon as you can. If it is almost time for your next dose, take only that dose. Do not take double or extra doses. Where should I keep my medicine? Keep out of the reach of children. Store at room temperature between 15 and 30 degrees C (59 and 86 degrees F). Keep container tightly closed. Throw away any unused medicine after the expiration date. What should I tell my health care provider before I take this medicine? They need to know if you have any of these conditions: asthma cigarette smoker drink more than 3 alcohol containing drinks a day heart disease or circulation problems such as heart failure or leg edema (fluid retention) high blood pressure kidney disease liver disease stomach bleeding or ulcers an unusual or allergic reaction to ibuprofen, aspirin, other NSAIDS, other medicines, foods, dyes, or preservatives or trying to get breast-feeding What should I watch for while using this medicine? Tell your doctor or healthcare professional if your symptoms do not start to get better or if they get worse. This medicine does not prevent heart attack or stroke. In fact, this medicine may increase the chance of a heart attack or stroke. The chance may increase with longer use of this medicine and in people who have heart disease. If you take aspirin to prevent heart attack or stroke, talk with your doctor or health intensive care unit registered nurse. Do not take other medicines that contain aspirin, ibuprofen, or naproxen with this medicine. Side effects such as stomach upset, nausea, or ulcers may be more likely to occur. Many medicines available without a prescription should not be taken with this medicine. This medicine can cause ulcers and bleeding in the stomach and intestines at any time during treatment. Ulcers and bleeding can happen without warning symptoms and can cause . To reduce your risk, do not smoke cigarettes or drink alcohol while you are taking this medicine. You may get drowsy or dizzy. Do not drive, use machinery, or do anything that needs mental alertness until you know how this medicine affects you. Do not stand or sit up quickly, especially if you are an older patient. This reduces the risk of dizzy or fainting spells. This medicine can cause you to bleed more easily. Try to avoid damage to your teeth and gums when you brush or floss your teeth. Ondansetron Oral disintegrating tablet What is this medicine? ONDANSETRON (on TABITHA se dennis) is used to treat nausea and vomiting caused by chemotherapy. It is also used to prevent or treat nausea and vomiting after surgery. How should I use this medicine? These tablets are made to dissolve in the mouth. Do not try to push the tablet through the foil backing. With dry hands, peel away the foil backing and gently remove the tablet. Place the tablet in the mouth and allow it to dissolve, then swallow. While you may take these tablets with water, it is not necessary to do so. Talk to your storage engineer regarding the use of this medicine in children. Special care may be needed. What side effects may I notice from receiving this medicine? Side effects that you should report to your doctor or health intensive care unit registered nurse as soon as possible: allergic reactions like skin rash, itching or hives, swelling of the face, lips, or tongue breathing problems dizziness fast or irregular heartbeat feeling faint or lightheaded, falls fever and chills swelling of the hands and feet tightness in the chest Side effects that usually do not require medical attention (report to your doctor or health intensive care unit registered nurse if they continue or are bothersome): constipation or diarrhea headache What may interact with this medicine? Do not take this medicine with any of the following medications: -apomorphine -cisapride -dofetilide -dronedarone -pimozide -thioridazine -ziprasidone This medicine may also interact with the following medications: -carbamazepine -phenytoin -rifampicin -tramadol -other medicines that prolong the QT interval (cause an abnormal heart rhythm) What if I miss a dose? If you miss a dose, take it as soon as you can. If it is almost time for your next dose, take only that dose. Do not take double or extra doses. Where should I keep my medicine? Keep out of the reach of children. Store between 2 and 30 degrees C (36 and 86 degrees F). Throw away any unused medicine after the expiration date. What should I tell my health care provider before I take this medicine? They need to know if you have any of these conditions: heart disease history of irregular heartbeat liver disease low levels of magnesium or potassium in the blood an unusual or allergic reaction to ondansetron, granisetron, other medicines, foods, dyes, or preservatives or trying to get breast-feeding What should I watch for while using this medicine? Check with your doctor or health intensive care unit registered nurse as soon as you can if you have any sign of an allergic reaction. You have been given the following additional information: Chest Pain, Uncertain Cause Abdominal Pain, Unknown Cause, (Female) Ibuprofen Oral tablet Ondansetron Oral disintegrating tablet (Electronically signed by Michael Escobar Dr. 06/30/2016 11:21)
--- NOTE | 2016-06-30 11:22 | ED MAR SUMMARY ---
..... Medication Administration Record [facility] [address] [place] [address] Patient: ANITHA LINK Visit ID: [id number] 26y, F Weight: 122.4 kg Height/Length: 61 in BMI: 51 ALLERGIES: No Known Drug Allergy Given 05:31 06/26/2016 Gonzalez Gonzales, RClaudyN. Medication Administered: Maalox 30mL and Viscous Lidocaine 20mL *, Dose: 50mL * PO. Medication Ordered: GI Cocktail WHITE PO 30 mL (NOW). Given 06:19 06/26/2016 Gonzalez Gonzales, R.N. Medication Administered: TORADOL [IVP], Dose: 30 mg IVP over 2 minute(s), Site: #1 right wrist. Medication Ordered: Toradol IV 30 mg (NOW).
--- NOTE | 2016-06-30 11:22 | ED MAR SUMMARY ---
..... Medication Administration Record [facility] [address] [place] [address] Patient: ANITHA LINK Visit ID: [id number] 26y, F Weight: 122.4 kg Height/Length: 61 in BMI: 51 ALLERGIES: No Known Drug Allergy Given 05:31 06/26/2016 Gonzalez Gonzales, RClaudyN. Medication Administered: Maalox 30mL and Viscous Lidocaine 20mL *, Dose: 50mL * PO. Medication Ordered: GI Cocktail WHITE PO 30 mL (NOW). Given 06:19 06/26/2016 Gonzalez Gonzales, R.N. Medication Administered: TORADOL [IVP], Dose: 30 mg IVP over 2 minute(s), Site: #1 right wrist. Medication Ordered: Toradol IV 30 mg (NOW).
--- NOTE | 2016-06-30 11:22 | ED MED RECONCILIATION SUMMARY ---
Patient: ANITHA LINK Medication Reconciliation Report [facility] VisitID: [id number] [address] [place] [address] 26y, F Registration Date/Time: 06/26/2016 Weight: 122.4 kg Height/Length: 61 in. BMI: 51.0 ALLERGIES: No Known Drug Allergy The patient's Home Medications are listed below: STOP TAKING THE FOLLOWING MEDICATIONS: Excedrin PM Oral The source(s) of the original Home Medication information: patient The following Medications were given to the patient in the Emergency Department: Maalox 30mL and Viscous Lidocaine 20mL PO 50mL, administered: 06/26/2016 5:31:00 AM Toradol [IVP] IVP 30 mg, administered: 06/26/2016 6:19:00 AM The following Medications were prescribed to the patient: Motrin 600 mg tablets: take 1 tablet orally every 6 hours as needed for pain, stiffness or swelling. Dispense thirty (30). No refill. Substitution is permissible. -- Michael Escobar Dr. Zofran ODT 4 mg: take 1 orally every 8 hours as needed for nausea and vomiting. Dispense ten (10). No refill. Substitution is permissible. -- Michael Escobar Dr.
== END 2016-06-26 09:22 | disposition home or self-care (01) ==
LOC: ED SRH 04:51
DX: R07.89 Other chest pain (principal); R10.84 Generalized abdominal pain; K83.1 Obstruction of bile duct; K76.0 Fatty (change of) liver, not elsewhere classified
CPT/HCPCS: 90100; 90616; 91320; 91556; 92235; 92760; 92761; 92762; 92763; 92764; 92765; 92766; 92767; 93070; 95059